=== PATIENT | female | born 1990 | race Two or more races ===

== ENCOUNTER 2020-03-05 17:58 | Emergency (ER) | payer MEDICAID, OTHER ==
[~2020-03-05] VITALS: Ht 160 cm; Wt 95.3 kg
[2020-03-05 18:54] LABS: Urine Bacteria NONE SEEN /hpf (None Seen); Urine Blood 1+ /uL (Negative); Urine Mucus FEW (None Seen); Urine WBC 90 /hpf (0 - 5)
[2020-03-05 19:27] LABS: Basophils # (auto) 0 10 ^3/uL (0-0.2); Basophils % (auto) 0.2 % (0.0-2.0); Eosinophils # (auto) 0 10 ^3/uL (0-0.8); Eosinophils % (auto) 0.3 % (0.0-7.0); Hematocrit 39.9 % (36.0-46.0); Hemoglobin 13.2 g/dL (12.2-16.2); Lymphocytes # (auto) 3.3 10 ^3/uL (0.4-5.4); Lymphocytes % (auto) 30.2 % (10.0-50.0); Mean Corpuscular Hemoglobin 28.9 pg (28.0-32.0); Mean Corpuscular Hgb Conc. 33.1 g/dL (32.0-36.0); Mean Corpuscular Volume 87.4 fL (80.0-100.0); Monocytes # (auto) 0.8 10 ^3/uL (0-1.3); Monocytes % (auto) 7.5 % (0.0-12.0); Neutrophils # (auto) 6.8 10 ^3/uL (1.6-8.6); Neutrophils % (auto) 61.8 % (37.0-80.0); Platelet Count (auto) 377 10^3/uL (140-450); Red Blood Cells 4.57 10^6/uL (4.0-5.20)
[2020-03-05 19:45] LABS: Albumin 3.5 g/dL (3.4-5.0); Calcium 8.7 mg/dL (8.5-10.1); Potassium 4.2 mmol/L (3.5-5.1)
[2020-03-05 19:48] LABS: Bilirubin, Total 0.3 mg/dL (0.2-1.0); Total Protein 7.7 g/dL (6.4-8.2)
[2020-03-05 19:51] LABS: BUN/Creatinine Ratio 11.4
[2020-03-05] MEDS ORDERED: SODIUM CHLORIDE 0.9% 2,000 ML IV ONE (21:15)
[2020-03-05] MEDS ORDERED: CLINDAMYCIN 900MG IV 50 ML IV ONE (21:15)
[2020-03-05] MEDS ORDERED: ONDANSETRON HCL 4 MG/2 ML VIAL IV ONE (21:30)
[2020-03-06 00:14] VITALS: BP 97/56
== END 2020-03-06 00:47 | disposition home or self-care (01) ==
LOC: ER 17:58
DX: O21.8 Other vomiting complicating pregnancy (principal); O23.41 Unspecified infection of urinary tract in pregnancy, first trimester; Z3A.01 Less than 8 weeks gestation of pregnancy
CPT/HCPCS: 36415; 80053; 81001; 84702; 85025; 96361; 96374; 99283; J2405; J7030

== ENCOUNTER 2024-05-02 12:43 | Inpatient (IN) | payer MEDICAID ==
[~2024-05-02] VITALS: Ht 160 cm; Wt 92.2 kg
[2024-05-02 13:30] LABS: Basophils # (auto) 0 10 ^3/uL (0-0.2); Basophils % (auto) 0.4 % (0.0-2.0); Eosinophils # (auto) 0.1 10 ^3/uL (0-0.8); Eosinophils % (auto) 0.7 % (0.0-7.0); Hemoglobin 13.4 g/dL (12.2-16.2); Lymphocytes # (auto) 2.9 10 ^3/uL (0.4-5.4); Lymphocytes % (auto) 23.5 % (10.0-50.0); Mean Corpuscular Hemoglobin 28.6 pg (28.0-32.0); Mean Corpuscular Hgb Conc. 33.5 g/dL (32.0-36.0); Mean Corpuscular Volume 85.3 fL (80.0-100.0); Monocytes # (auto) 0.9 10 ^3/uL (0-1.3); Monocytes % (auto) 7.5 % (0.0-12.0); Neutrophils # (auto) 8.5 10 ^3/uL (1.6-8.6); Neutrophils % (auto) 67.9 % (37.0-80.0); Red Blood Cells 4.69 10^6/uL (4.0-5.20); Red Cell Distribution Width 14.2 % (11.8-14.3); White Blood Cell 12.5 10^3/uL (4.4-10.8)
[2024-05-02 13:48] LABS: Alanine Aminotransferase 41 U/L (7-40); Albumin 4.8 g/dL (3.2-4.8); Alkaline Phosphatase 106 U/L (46-116); Anion Gap 8 (5-15); Aspartate Aminotransferase 21 U/L (13-40); BUN/Creatinine Ratio 8.9 (10.0-20.0); Blood Urea Nitrogen 7 mg/dL (9-23); Calcium 9.6 mg/dL (8.7-10.4); Carbon Dioxide 27 mmol/L (20-30); Chloride 107 mmol/L (98-107); Glucose 83 mg/dL (74-106); Potassium 3.5 mmol/L (3.5-5.1); Sodium 142 mmol/L (136-145)
[2024-05-02 13:49] LABS: Bilirubin, Total 0.7 mg/dL (0.2-1.0); Total Protein 7.6 g/dL (5.7-8.2)
[2024-05-02] MEDS: SODIUM CHLORIDE 0.9% 1,000 ML IV ONE (14:05)
[2024-05-02 14:15] VITALS: PULSE 100; RESP 20; O2SAT 100
[2024-05-02 14:38] LABS: Urine Bacteria FEW /hpf (None Seen); Urine Blood 1+ /uL (Negative); Urine Clarity Turbid (Clear); Urine Color Yellow (Yellow); Urine Mucus FEW (None Seen); Urine Protein, UAD 1+ (Negative); Urine Specific Gravity 1.034 (1.001-1.035); Urine Urobilinogen Normal (Negative); Urine WBC 84 /hpf (0 - 5)
[2024-05-02] MEDS: MORPHINE SULFATE 4 MG/ML SYR/VIAL IV ONE (14:47)
[2024-05-02] MEDS: ONDANSETRON HCL 4 MG/2 ML VIAL IV ONE (14:48)
[2024-05-02] MEDS ORDERED: metroNIDAZOLE 500MG/100ML 100 ML IV ONE (15:45)
[2024-05-02] MEDS ORDERED: DOCUSATE SOD 100 MG CAP PO PRN (16:30)
[2024-05-02] MEDS: LACTATED RINGER'S 1,000 ML IV ONE (18:30)
[2024-05-02] MEDS: metroNIDAZOLE 500MG/100ML 100 ML IV SCH (18:30)
[2024-05-02] MEDS: HYDROmorphone HCL 2 MG/ML VL/or syr IV PRN (19:57)
[2024-05-02] MEDS: HYDROcodone-ACET 5/325MG TAB PO PRN (19:57)
[2024-05-02] MEDS: ONDANSETRON HCL 4 MG/2 ML VIAL IV PRN (19:57)
[2024-05-02] MEDS: SODIUM CHLOR 0.9% PF (SALINE LOCK) 10ML VIAL/SYR IV SCH (22:00)
[2024-05-02] MEDS: diphenhdrAMINE HCL 50 MG/1 ML VL IV ONE (22:34)
[2024-05-02] MEDS: diphenhdrAMINE HCL 50 MG/1 ML VL ONE (22:36)
[2024-05-02 23:44] VITALS: BP 115/71; PULSE 69; RESP 18; TEMP 98.5; O2SAT 99
[2024-05-03] VITALS (8 sets, daily range): BP systolic 100–115; BP diastolic 52–73; PULSE 56–78; RESP 16–19; TEMP 97.6–98.5; O2SAT 95–99
[2024-05-03] MEDS: levoFLOXacin 500MG 100 ML IV ONE (00:33)
[2024-05-03] MEDS ORDERED: SEMA0.25 SC (01:55)
[2024-05-03 07:26] LABS: Basophils # (auto) 0 10 ^3/uL (0-0.2); Basophils % (auto) 0.3 % (0.0-2.0); Eosinophils # (auto) 0.1 10 ^3/uL (0-0.8); Eosinophils % (auto) 1.6 % (0.0-7.0); Hematocrit 36.9 % (36.0-46.0); Hemoglobin 12.3 g/dL (12.2-16.2); Lymphocytes # (auto) 3.4 10 ^3/uL (0.4-5.4); Lymphocytes % (auto) 46.9 % (10.0-50.0); Mean Corpuscular Hemoglobin 28.5 pg (28.0-32.0); Mean Corpuscular Hgb Conc. 33.3 g/dL (32.0-36.0); Mean Corpuscular Volume 85.6 fL (80.0-100.0); Monocytes # (auto) 0.5 10 ^3/uL (0-1.3); Neutrophils # (auto) 3.2 10 ^3/uL (1.6-8.6); Neutrophils % (auto) 44.2 % (37.0-80.0); Red Blood Cells 4.31 10^6/uL (4.0-5.20); Red Cell Distribution Width 14.2 % (11.8-14.3); White Blood Cell 7.2 10^3/uL (4.4-10.8)
[2024-05-03 07:46] LABS: Alanine Aminotransferase 137 U/L (7-40); Albumin 3.8 g/dL (3.2-4.8); Alkaline Phosphatase 115 U/L (46-116); Anion Gap 5 (5-15); Aspartate Aminotransferase 73 U/L (13-40); Calcium 8.4 mg/dL (8.7-10.4); Carbon Dioxide 27 mmol/L (20-30); Chloride 108 mmol/L (98-107); Glucose 82 mg/dL (74-106); Potassium 3.4 mmol/L (3.5-5.1); Sodium 140 mmol/L (136-145)
[2024-05-03 07:47] LABS: Bilirubin, Total 0.8 mg/dL (0.2-1.0); Total Protein 6.1 g/dL (5.7-8.2)
[2024-05-03 07:48] LABS: BUN/Creatinine Ratio 7.6 (10.0-20.0); Blood Urea Nitrogen < 5 mg/dL (9-23)
[2024-05-03] MEDS: FAMOTIDINE (10MG/ML) 2ML VL IV SCH (08:49)
[2024-05-03] MEDS: ENOXAPARIN SOD 40 MG/0.4 ML SYRINGE SC SCH (08:52)
[2024-05-03] MEDS: cefTRIAXone 1GM/50ML D5W 50 ML IV SCH (10:40)
[2024-05-03 11:02] LABS: Amphetamine Screen, Urine Neg (NEGATIVE); Barbiturate Scree,Urine Neg (NEGATIVE); Benzodiazephine Screen, Urine Neg (NEGATIVE); Cocaine Screen, Urine Neg (NEGATIVE); Opiate Scree,Urine Neg (NEGATIVE)
[2024-05-03 11:03] LABS: Cannabinoid Screen, Urine Neg (NEGATIVE); Phencyclidine Screen, Urine Neg (NEGATIVE)
[2024-05-03] MEDS ORDERED: CIPR-173 PO (13:26)
[2024-05-03] MEDS ORDERED: METR-344 PO (13:26)
[2024-05-03] MEDS: POTASSIUM EFFERVESENT TAB 25 MEQ PO ONE (16:05)
[2024-05-03] MEDS: ACETAMINOPHEN 325 MG TAB PO PRN (16:11)
== END 2024-05-03 18:05 | disposition home or self-care (01) | DRG 244 ==
LOC: ER 12:43 → OVERFLOW 16:31 → CENTRAL 05-03 01:03
PROVIDERS: ADMIT Internal Medicine Pulmonary Disease; ATTEND Emergency Medicine
DX: K57.32 Diverticulitis of large intestine without perforation or abscess without bleeding (principal); N30.00 Acute cystitis without hematuria; Z87.440 Personal history of urinary (tract) infections; Z79.899 Other long term (current) drug therapy; Z88.1 Allergy status to other antibiotic agents; Z90.49 Acquired absence of other specified parts of digestive tract; Z88.0 Allergy status to penicillin
CPT/HCPCS: 36415; 74176; 80053; 80307; 81001; 83605; 83735; 84443; 84702; 85025; 87040; 87086; 96361; 96365; 96375; G0378; J2405; J3490